=== PATIENT | female | born 1960 | race Caucasian/White ===

== ENCOUNTER 2018-01-05 10:25 | Emergency (ER) | payer BC ==
[2018-01-05] MEDS ORDERED: HYDROcodone/Acetaminophen 5/325 mg Tablet ONE (12:03)
[2018-01-05] MEDS ORDERED: methylPREDNISolone Sod Succ/PF 125 MG/2 ML VIAL ONE (12:04)
[2018-01-05] MEDS ORDERED: Ketorolac Tromethamine 30 MG/ML VIAL ONE (12:05)
[2018-01-05] MEDS ORDERED: Water For Inject, Bacteriostat 30 ML ONE (12:06)
[2018-01-05] MEDS ORDERED: Diazepam 5 MG TAB ONE (12:08)
== END 2018-01-05 14:00 | disposition home or self-care (01) ==
LOC: ERS 10:25
DX: M54.12 Radiculopathy, cervical region (principal); G89.29 Other chronic pain; I11.0 Hypertensive heart disease with heart failure; I50.9 Heart failure, unspecified; F41.9 Anxiety disorder, unspecified; F17.210 Nicotine dependence, cigarettes, uncomplicated; Z79.899 Other long term (current) drug therapy
CPT/HCPCS: 96374; 96375; J1885; J2930

== ENCOUNTER 2018-06-16 11:20 | Outpatient (CLI) | payer BC | END 2018-06-16 11:21 | disposition home or self-care (01) | LOC: BICMAMMO 11:20 | PROVIDERS: ATTEND Obstetrics & Gynecology | DX: Z12.31 Encounter for screening mammogram for malignant neoplasm of breast (principal) | CPT/HCPCS: 77063; 77067 ==

== ENCOUNTER 2018-07-25 15:09 | Outpatient (CLI) | payer BC ==
--- NOTE | 2018-07-25 18:20 | MRI ---
MRI LUMBAR SPINE: 07/25/18 HISTORY: Low back pain, M99.33. Pain down leg for 15 years. Multiplanar and multisequence noncontrast enhanced MRI images lumbar spine obtained. For the purposes of this dictation, the last freely mobile vertebral body will be considered to be th e L5 vertebral body. All other vertebral bodies numbered according to this. T12-L1: There is a mild broad based disc bulge, minimally but not significantly compressing the theca l sac. The neural foramen are patent. L1-L2: Disc desiccation is seen. There is disc space height loss is seen. There is a broad based disc bulge resulting in mild compression of the thecal sac. The neural foramen are patent. There is an an nular fissure seen along the posterior aspect of the annulus fibrosis at L1-2. L2-L3: There is some mild to moderate bilateral facet hypertrophy and minimal ligamentum flavum hyper trophy. No significant degree of the central disc herniation seen. This facet hypertrophy results in mild central and lateral recess stenosis. L3-L4: Disc desiccation is seen. There is a broad based disc bulge. There is an annular fissure seen along the posterior aspect of the annulus fibrosis. There is bilateral facet hypertrophy. This result s in mild central lateral recess stenosis. The neural foramen are patent. L4-L5: Disc desiccation is seen. There is a broad based disc bulge with bilateral facet hypertrophy. No significant degree of central stenosis seen. The neural foramen are patent. There has been annular fissure seen along the posterior aspect of the annulus fibrosis. L5-S1: Disc desiccation is seen. There is mild facet hypertrophy seen. The central canal and neural f oramen are patent. IMPRESSION: 1. L3-4 and L4-5 annular fissures. There is also some disc desiccation and annular fissure seen at the L1-2 level. 2. Mild broad based disc bulge at T12-L1. POS: [facility]
== END 2018-07-25 15:10 | disposition home or self-care (01) ==
LOC: TBSIIMAG 15:09
PROVIDERS: ATTEND Physical Medicine & Rehabilitation
DX: M54.16 Radiculopathy, lumbar region (principal); M79.606 Pain in leg, unspecified; M51.85 Other intervertebral disc disorders, thoracolumbar region
CPT/HCPCS: 72148

== ENCOUNTER 2019-07-09 12:52 | Outpatient (CLI) | payer BC ==
--- NOTE | 2019-07-09 15:50 | MMO ---
Bilateral MAMMO Bilat Screen [facility]. CLINICAL HISTORY: Patient is 59 years old and is seen for screening. The patient has no family history of breast cancer. The patient has no personal history of cancer. VIEWS: The views performed were: bilateral craniocaudal with tomosynthesis and bilateral mediolateral oblique with tomosynthesis. FILMS COMPARED: The present examination has been compared to a prior imaging study performed at [facility] on 06/16/2018. This study has been interpreted with the assistance of computer-aided detection. MAMMOGRAM FINDINGS: There are scattered fibroglandular densities. There are no suspicious masses, suspicious calcifications, or new areas of architectural distortion. IMPRESSION: THERE IS NO MAMMOGRAPHIC EVIDENCE OF MALIGNANCY. A ROUTINE FOLLOW-UP MAMMOGRAM IN 1 YEAR IS RECOMMENDED. THE RESULTS OF THIS EXAM WERE SENT TO THE PATIENT. ACR BI-RADS Category 1 - Negative MAMMOGRAPHY NOTE: 1. A negative mammogram report should not delay a biopsy if a dominant of clinically suspicious mass is present. 2. Approximately 10% to 15% of breast cancers are not detected by mammography. 3. Adenosis and dense breasts may obscure an underlying neoplasm. Reported by: DILMA JACQUES MD Electonically Signed: [id number]
== END 2019-07-09 12:53 | disposition home or self-care (01) ==
LOC: BICMAMMO 12:52
PROVIDERS: ATTEND Obstetrics & Gynecology
DX: Z12.31 Encounter for screening mammogram for malignant neoplasm of breast (principal)
CPT/HCPCS: 77063; 77067

== ENCOUNTER 2019-07-24 14:07 | Outpatient (CLI) | payer BC ==
--- NOTE | 2019-07-24 14:34 | BD ---
DEXA DENSITOMETRY: HISTORY: Postmenopausal screening. FINDINGS: LUMBAR SPINE BMD (g/cm2) T-SCORE L1 0.813 -2.6 L2 0.799 -2.1 L3 0.857 -2.1 L4 0.741 -2.9 TOTAL 0.803 -2.2 FEMORAL NECK 0.624 -2.0 TOTAL 0.764 -1.5 IMPRESSION: The bone mineral density of the lumbar spine and femoral neck both indicate osteopenia. TEN YEAR FRACTURE RISK: Major osteoporotic fracture: 17% Hip fracture: 1.9% POS: [facility]
== END 2019-07-24 14:08 | disposition home or self-care (01) ==
LOC: BICMAMMO 14:07
PROVIDERS: ATTEND Obstetrics & Gynecology
DX: Z13.820 Encounter for screening for osteoporosis (principal); M81.0 Age-related osteoporosis without current pathological fracture; M85.859 Other specified disorders of bone density and structure, unspecified thigh
CPT/HCPCS: 77080

== ENCOUNTER 2019-09-30 11:31 | Emergency (ER) | payer BC ==
[2019-09-30] MEDS ORDERED: Morphine 4 MG/ML VIAL ONE (12:16)
[2019-09-30] MEDS ORDERED: Ketorolac Tromethamine 30 MG/ML VIAL ONE (12:17)
== END 2019-09-30 12:38 | disposition home or self-care (01) ==
LOC: ERS 11:31
DX: M54.5 Low back pain (principal); I11.0 Hypertensive heart disease with heart failure; I50.9 Heart failure, unspecified; F41.9 Anxiety disorder, unspecified; F17.210 Nicotine dependence, cigarettes, uncomplicated; Z79.899 Other long term (current) drug therapy
CPT/HCPCS: 96372; 99283; J1885; J2270

== ENCOUNTER 2020-06-09 00:30 | Emergency (ER) | payer BC ==
[2020-06-09] MEDS ORDERED: Lidocaine 1% (PF) 30 ML VIAL ONE (01:38)
[2020-06-09] MEDS ORDERED: Bupivacaine 0.5% 10 ML VIAL ONE (01:39)
[2020-06-09] MEDS ORDERED: AMOXicillin 250 MG CAP ONE (02:05)
== END 2020-06-09 02:09 | disposition home or self-care (01) ==
LOC: ERS 00:30
DX: K02.9 Dental caries, unspecified (principal); I11.0 Hypertensive heart disease with heart failure; I50.9 Heart failure, unspecified; F41.9 Anxiety disorder, unspecified; F32.9 Major depressive disorder, single episode, unspecified; F17.210 Nicotine dependence, cigarettes, uncomplicated; Z79.899 Other long term (current) drug therapy
CPT/HCPCS: 64400; J2001; J3490

== ENCOUNTER 2023-08-12 15:43 | Emergency (ER) | payer BC ==
[2023-08-12 17:12] LABS: #Eosinphils 0.4 thou/uL (0.0-0.7); #Monocytes 1.1 thou/uL (0.11-0.59); #Neutrophils 5.2 thou/uL (1.40-6.50); %Basophils 0.4 % (0.0-1.0); %Lymphocytes 35.2 % (21.0-51.0); %Monocytes 10.3 % (0.0-10.0); %Neutrophils 49.8 % (42.0-75.0); Hematocrit 34.5 % (36.0-47.0); Hemoglobin 11.1 g/dL (12.0-16.0); Mean Corpuscular HGB CONC 32.2 g/dL (32.0-36.0); Mean Corpuscular Hemoglobin 29.4 pg (27.0-31.0); Mean Corpuscular Volume 91.5 fl (78.0-98.0); Mean Platelet Volume 11.4 fL (7.4-10.4); Platelet Count 182 10x3/uL (130-400); RBC Distribution Width 14.2 % (11.5-14.5); Red Blood Cell (RBC) Count 3.77 mill/uL (4.20-5.40); White Blood Cell (WBC) Count 10.4 10x3/uL (4.8-10.8)
[2023-08-12 17:39] LABS: Troponin I Less than 0.010 ng/mL (< 0.028)
[2023-08-12 17:43] LABS: ALT (SGPT) 20 U/L (8-55); AST (SGOT) 49 U/L (5-34); Albumin 3.8 g/dL (3.4-4.8); Alkaline Phosphatase 81 U/L (40-110); Anion Gap 10 mmol/L (10-20); BUN (Urea Nitrogen) 12 mg/dL (9.8-20.1); Bilirubin, Total 0.3 mg/dL (0.2-1.2); Calc. Creatinine Clearance 0 mL/min (70-130); Calcium 8.5 mg/dL (7.8-10.44); Carbon Dioxide 27 mmol/L (23-31); Chloride 107 mmol/L (98-107); Estimated GFR 82; Globulin 2.1 g/dL (2.4-3.5); Glucose 86 mg/dL (80-115); Potassium 3.8 mmol/L (3.5-5.1); Protein, Total 5.9 g/dL (5.8-8.1); Sodium 140 mmol/L (136-145)
[2023-08-12] MEDS ORDERED: Ketorolac Tromethamine 30 MG/ML VIAL ONE (17:54)
== END 2023-08-12 18:30 | disposition home or self-care (01) ==
LOC: ERS 15:43
DX: M54.2 Cervicalgia (principal); R10.11 Right upper quadrant pain; I11.0 Hypertensive heart disease with heart failure; I50.9 Heart failure, unspecified; F17.210 Nicotine dependence, cigarettes, uncomplicated; Z79.899 Other long term (current) drug therapy
CPT/HCPCS: 36415; 71045; 80053; 84484; 85025; 93005; 96374; J1885

== ENCOUNTER 2024-09-25 06:15 | Emergency (ER) | payer MEDICARE, OTHER ==
[2024-09-25] MEDS ORDERED: Ondansetron PF 4 MG/2 ML Vial ONE (06:44)
[2024-09-25 07:08] LABS: #Basophils 0.04 10x3/uL (0.0-0.2); %Basophils 0.2 % (0.0-1.0); %Eosinophils 0.8 % (0.0-10.0); %Lymphocytes 8.5 % (21.0-51.0); %Monocytes 7.7 % (0.0-10.0); %Neutrophils 82.3 % (42.0-75.0); Hematocrit 37.8 % (36.0-47.0); Hemoglobin 13.1 g/dL (12.0-16.0); Mean Corpuscular HGB CONC 34.7 g/dL (32.0-36.0); Mean Corpuscular Volume 92.2 fL (78.0-98.0); Mean Platelet Volume 11.7 fL (7.4-10.4); Platelet Count 193 10x3/uL (130-400); RBC Distribution Width 12.4 % (11.5-14.5)
[2024-09-25] MEDS ORDERED: diphenhydrAMINE 50 MG/ML VIAL ONE (07:23)
[2024-09-25] MEDS ORDERED: Metoclopramide HCl 10 MG (2 mL) VIAL ONE (07:24)
[2024-09-25 07:31] LABS: ALT (SGPT) 19 U/L (8-55); AST (SGOT) 19 U/L (5-34); Albumin 3.2 g/dL (3.4-4.8); Alkaline Phosphatase 76 U/L (40-110); Anion Gap 13 mmol/L (10-20); BUN (Urea Nitrogen) 12 mg/dL (9.8-20.1); Bilirubin, Total 0.5 mg/dL (0.2-1.2); Calc. Creatinine Clearance 0 mL/min (70-130); Calcium 8.3 mg/dL (7.8-10.44); Carbon Dioxide 22 mmol/L (23-31); Chloride 110 mmol/L (98-107); Estimated GFR 98; Globulin 2.6 g/dL (2.4-3.5); Glucose 95 mg/dL (80-115); Lipase 17 U/L (8-78); Potassium 3.3 mmol/L (3.5-5.1); Protein, Total 5.8 g/dL (5.8-8.1); Sodium 142 mmol/L (136-145)
[2024-09-25 07:33] LABS: Troponin I Less than 0.010 ng/mL (< 0.028)
[2024-09-25 08:40] LABS: Bacteria/HPF None Seen HPF (None Seen); Bilirubin Negative (Negative); Blood, Urine Trace (Negative); CAUTI Indications for Culture Dysuria,urgency,freq; Clarity Clear (Clear); Glucose, Urine (Dipstick) Normal (Negative); Ketone, Urine Negative (Negative); Leukocyte Negative Leu/uL (Negative); Nitrite Negative (Negative); Protein, Urine (Dipstick) Negative (Neg-Trace); RBC/HPF 0-3 HPF (0-3); Specific Gravity, Urine 1.017 (1.002-1.036); Squamous Epithelial 0-3 HPF (0-3); Urobilinogen Normal mg/dL (Less than 2); WBC/HPF 0-3 HPF (0-3)
[2024-09-25 08:45] LABS: Urine Culture Reflex No No
== END 2024-09-25 09:07 | disposition home or self-care (01) ==
LOC: ERS 06:15
DX: B34.9 Viral infection, unspecified (principal); R91.1 Solitary pulmonary nodule; I11.0 Hypertensive heart disease with heart failure; I50.9 Heart failure, unspecified; F17.210 Nicotine dependence, cigarettes, uncomplicated; Z79.899 Other long term (current) drug therapy
CPT/HCPCS: 70450; 71045; 80053; 81001; 83690; 84484; 85025; 87081; 87428; 87430; 93005; 96374; 96375; 99284; J1200; J2405; J2765; 36415